=== PATIENT | male | born 1940 | race Caucasian/White ===

== ENCOUNTER → 2017-08-23 | Outpatient (CLI) | payer OTHER ==
[~2017-08-23] VITALS: Ht 185.4 cm; Wt 67.9 kg
[~2017-08-23] MED LIST: ACCUNEB SO1.25 MG/1 INH; ADVIL100 M2 PO; AZITHROMYCIN 2250 MG PO; BEVESPI AEROS10.7 GM INH; LEVAQUIN 750 M750 MG PO; MEDROLDOSEPACK PO; METHOCARBAMOL500 M2 PO; MUCINEX600 MG PO; NAPROSYN500 MG PO; NEXIUM40 MG PO; PHENERGAN 25 MG25 M1 PO; PREDNISONE 10 M10 MG PO; PREDNISONE 20 M20 MG PO; SPIRIVA INH; SYMBICORT160 MCG/4. INH; TRAMADOL 50 MG50 MG PO
--- NOTE | ~2017-08-23 | HPC ---
[facility] [place] [address] PAIN MANAGEMENT CONSULTATION Name: KOLE CRENSHAW [facility] #: [facility] [id number] Admission: 08/23/17 Attend Phys: Rip Cleveland DO Discharge: Date of : 38 Report #: [id number] THIS REPORT FOR: //name// CC: Delmar Carvajal MD DATE OF SERVICE: 08/23/2017 REFERRING PHYSICIAN: Florencio Carvajal MD CHIEF COMPLAINT: Low back pain, bilateral lower extremity pain with paresthesias. HISTORY OF PRESENT ILLNESS: As you know, the patient is a 77-year-old male who returns today in followup visit with ongoing pain involving low back and bilateral lower extremities. The patient was planned to undergo epidural injection, but he missed his appointments due to a COPD exacerbation and he was subsequently hospitalized. He now returns today in followup visit reporting pain score 7-8/10, states pain is exacerbated with sitting, walking any long distances, lying down appears to improve pain. He returns today requesting to undergo the epidural injection that we had planned for last visit. He indicates that his COPD has been exacerbated of late, he just recently completed a Z-CAMERON and so he is now done with his antibiotics. He is to return to have epidural injection. ALLERGIES: CODEINE. CURRENT MEDICATIONS: Omeprazole, Symbicort, glycopyrrolate, guaifenesin, and albuterol. SOCIAL HISTORY: The patient indicates he is a nonsmoker. Denies IV or illicit drug use. Denies any chronic alcohol use. He was employed in sales, he is retired, retired years ago, unaccompanied today. IMAGING: No new imaging available. PHYSICAL EXAMINATION: VITAL SIGNS: Blood pressure 121/70, pulse 82, respiratory rate 16 and unlabored, the patient is 95% on room air, height 6 feet 1 inch tall, weight 149.8 pounds, and BMI calculated 19.8. GENERAL: Thin, somewhat ill-appearing, frail 77-year-old male, he appears older than his stated age, placing current pain score at 7-8/10. HEENT: Normocephalic, atraumatic. Pupils are equal, round, and reactive to light. EXTREMITIES: Show no clubbing, no cyanosis, and no edema. [address] [address] PAIN MANAGEMENT CONSULTATION Name: KOLE CRENSHAW Room #: REG [facility]#: [id number] Admission: 08/23/17 Attend Phys: Rip Cleveland DO Discharge: Date of : 38 Report #: [id number] MUSCULOSKELETAL: Seated straight leg raising negative. Supine straight leg raising negative. Elie's test negative. Modified Gaenslen's positive for axial low back pain. Gait is antalgic. Stance is forward flex to lumbar spine. ASSESSMENT: 1. Atypical lumbar radiculopathy. 2. Lumbosacral spondylosis with radicular symptoms. 3. Axial back pain. 4. Myofascial symptoms. 5. Chronic intractable pain. PLAN: 1. The patient has returned today in followup visit requesting to undergo the epidural injection we have planned for last visit. The patient unfortunately missed his appointment due to COPD exacerbation. He is now indicating he is doing better overall, he has completed the antibiotic therapy and inhaled steroid, symptoms have improved. He has been advised to return, trial an epidural injection to address axial back pain and lower extremity symptoms. The patient has been advised the risks and benefits of an epidural injection, these risks include, but are not necessarily limited to bleeding, bruising, infection, worsening of pain, no relief of pain, also risk of temporary or permanent muscle weakness, temporary or permanent nerve damage, possible paralysis and . The patient states understood and wished to proceed. 2. No medication changes were made at today's visit. The patient will continue current medical therapy as previously prescribed. 3. We will see the patient back in followup visit in approximately 3 weeks, at that time we will review the efficacy of the epidural injection provided today and determine if next in a series would be warranted. PROCEDURE NOTE DESCRIPTION OF PROCEDURE: L5-S1 interlaminar epidural steroid injection under fluoroscopic guidance. This is the first procedure of the first series that the patient is undergoing. After obtaining written consent, the patient was taken back to the fluoroscopy suite, placed in a prone position with pillow under the abdomen to decrease lumbar lordosis. The skin overlying the lumbosacral area was then prepped and draped in aseptic fashion. The L5-S1 vertebral interspace was then identified by AP fluoroscopy. The skin and subcutaneous tissue overlying the target site of injection was anesthetized with 3 mL 1% lidocaine. Z00-ewifg 3-1/2-inch Tuohy needle was then advanced under fluoroscopic guidance towards the epidural space using a paramedian approach. The epidural space was identified using loss of resistance to air technique. After negative aspiration [facility] [address] [place] [address] PAIN MANAGEMENT CONSULTATION Name: KOLE CRENSHAW Room #: REG [facility] Holly#: [id number] Admission: 08/23/17 Attend Phys: Rip Cleveland DO Discharge: Date of : 38 Report #: [id number] for heme or cerebrospinal fluid, a total of 0.5 mL of Omnipaque was injected. A lumbar epidurogram was confirmed using both AP and lateral fluoroscopy. After negative aspiration for heme or cerebrospinal fluid, 4 mL of a solution containing 2 mL 40 mg per mL, 80 mg total triamcinolone, 2 mL of lidocaine 1% was injected in increments. Contrast spread was noted posterior epidural space. The needle was then retracted approximately half way and needle tract flushed with 1 mL of 1% lidocaine. Needle was then removed. There were no apparent sensory or motor deficits in the lower extremity following the procedure. A sterile bandage was placed over the injection site. The heart rate, pulse, oximetry and blood pressure were continuously monitored after the procedure. There were no apparent complications. The patient tolerated the procedure well and was carefully escorted to the recovery room in stable condition. There were no apparent complications. After meeting discharge criteria, the patient was then discharged home. By: 1158 [id number] Rip Cleveland DO /nt
[2017-08-23 09:41] VITALS: BP 121/70
== END | disposition home or self-care (01) ==
LOC: PAIN 07-18 07:08
DX: M54.16 Radiculopathy, lumbar region (principal); M47.27 Other spondylosis with radiculopathy, lumbosacral region; G89.29 Other chronic pain; M79.1 Myalgia; Z79.899 Other long term (current) drug therapy; Z88.8 Allergy status to other drugs, medicaments and biological substances; J44.9 Chronic obstructive pulmonary disease, unspecified; Z87.891 Personal history of nicotine dependence

== ENCOUNTER 2019-06-18 11:51 | Inpatient (IN) | payer OTHER ==
[~2019-06-18] VITALS: Ht 185.4 cm; Wt 62.3 kg
[2019-06-18 11:52] VITALS: BP 85/49
[2019-06-18] MEDS ORDERED: COLACE100 MG PO (12:22)
[2019-06-18] MEDS ORDERED: XANAX 0.25 MG0.25 MG PO (12:22)
[2019-06-18] MEDS ORDERED: LEXAPRO 10 MG T10 M1 PO (12:22)
[2019-06-18] MEDS ORDERED: FLONASE 0.05%50 MCG NASAL (12:23)
[2019-06-18] MEDS ORDERED: MIRALAX17 GM PO (12:23)
[2019-06-18 13:00] LABS: ANION GAP 8 mmol/L (7-16); BUN 14 mg/dL (7-18); CALCIUM 9.4 mg/dL (8.5-10.1); CHLORIDE 103 mmol/L (98-107); CO2 28 mmol/L (21-32); CREATININE 0.9 mg/dL (0.7-1.3); GLUCOSE 175 mg/dL (74-106); POTASSIUM 3.4 mmol/L (3.5-5.1); SODIUM 139 mmol/L (136-145)
[2019-06-18 13:04] LABS: ABSOLUTE NEUTROPHILS 5.3 thou/uL (1.4-8.2); BASOPHILS 0.6 % (0.0-2.0); EOSINOPHILS 5.5 % (0.0-3.0); HEMATOCRIT 38.6 % (42.0-52.0); HEMOGLOBIN 12.4 gm/dL (14.0-18.0); LYMPHOCYTES 8.8 % (24.0-44.0); MCH 26.8 pg (26.0-34.0); MCHC 32.1 g/dL (28.0-37.0); MCV 83.4 fL (80.0-100.0); MONOCYTES 11.6 % (1.0-8.0); PLATELET COUNT 280 thou/uL (150-400); POLYS 73.5 % (36.0-66.0); RBC 4.63 mil/uL (4.50-6.00); RDW 15.7 % (10.5-14.5); WBC 7.2 thou/uL (4.0-11.0)
[2019-06-18 13:11] LABS: ALBUMIN 3.4 g/dL (3.4-5.0); DIRECT BILIRUBIN 0.1 mg/dL (<0.1-0.3); SGOT 19 U/L (15-37); SGPT 21 U/L (30-65); TOTAL BILIRUBIN 0.5 mg/dL (<0.1-1.0); TOTAL PROTEIN 7.2 g/dL (6.4-8.2); TROPONIN-I <0.06 ng/mL (<0.06)
--- NOTE | 2019-06-18 14:12 | EKG ---
[place] [address] [facility] [place] [address] ELECTROCARDIOGRAM REPORT Name: KOLE CRENSHAW Room #: REG [place]ac#: [id number] Admission: 06/18/19 Attend Phys: Discharge: Date of : 38 Report #: [id number] THIS REPORT FOR: //name// [facility] ED Test Date: 2019-06-18 Test Time: 12:51:09 Pat Name: KOLE CRENSHAW Department: Room: Gender: M [employer] Operator: DENISE : 1940 Requested By: Esequiel Guadalupe Order Number: [id number] MD: Evin Michelle Measurements Intervals [place] Rate: 60 P: 64 KS: 160 QRS: 80 QRSD: 105 T: 58 QT: 444 QTc: 444 Interpretive Statements Sinus rhythm Baseline wander in lead(s) V1 Compared to ECG 08/21/2016 15:54:40 Atrial premature complex(es) no longer present Electronically Signed On 06-18-2019 14:11:54 CDT by Evin Michelle [email or web address] <ELECTRONICALLY SIGNED> By: Evin Michelle MD 06/18/19 1411 1251 125 Evin Michelle MD /[place]
[2019-06-18 15:19] LABS: URINE BILIRUBIN NEGATIVE (Negative); URINE BLOOD NEGATIVE (Negative); URINE CLARITY CLEAR; URINE COLOR YELLOW; URINE GLUCOSE-RANDOM* NEGATIVE (Negative); URINE KETONES TRACE (Negative); URINE LEUKOCYTES-REFLEX NEGATIVE (Negative); URINE NITRITE-REFLEX NEGATIVE (Negative); URINE PROTEIN (DIPSTICK) NEGATIVE (Negative); URINE SPECIFIC GRAVITY >= 1.030 (1.005-1.035); URINE UROBILINOGEN 0.2 E.U./dl (0.2-1.0)
[2019-06-18 16:38] VITALS: BP 94/58
[2019-06-18 17:00] VITALS: BP 110/62
[2019-06-18] MEDS ORDERED: B COMPLEX WITH1 EACH PO (18:30)
[2019-06-18 20:26] VITALS: BP 99/57
[2019-06-19 00:55] VITALS: BP 111/62
[2019-06-19 04:37] VITALS: BP 108/69
[2019-06-19 05:24] LABS: HEMATOCRIT 33.6 % (42.0-52.0); HEMOGLOBIN 10.8 gm/dL (14.0-18.0); MCH 26.8 pg (26.0-34.0); MCHC 32.3 g/dL (28.0-37.0); MCV 83.1 fL (80.0-100.0); RBC 4.04 mil/uL (4.50-6.00); RDW 15.6 % (10.5-14.5); WBC 6.4 thou/uL (4.0-11.0)
[2019-06-19 05:25] LABS: CALCIUM 8.5 mg/dL (8.5-10.1); CREATININE 0.6 mg/dL (0.7-1.3); POTASSIUM 3.7 mmol/L (3.5-5.1)
[2019-06-19 07:35] VITALS: BP 116/60
[2019-06-19 16:46] VITALS: BP 106/61
[2019-06-19 19:40] LABS: % SATURATION 20 % (20-39); IRON 47 ug/dL (65-175); TIBC 239 ug/dL (250-450)
[2019-06-19 19:43] VITALS: BP 100/52
[2019-06-20 03:08] VITALS: BP 102/54
[2019-06-20 04:41] VITALS: BP 104/63
[2019-06-20 06:19] LABS: BASOPHILS 0.1 % (0.0-2.0); EOSINOPHILS 0.1 % (0.0-3.0); HEMATOCRIT 34.5 % (42.0-52.0); HEMOGLOBIN 11.4 gm/dL (14.0-18.0); LYMPHOCYTES 2.9 % (24.0-44.0); MCH 27.2 pg (26.0-34.0); MCHC 32.9 g/dL (28.0-37.0); MCV 82.5 fL (80.0-100.0); MONOCYTES 1.8 % (1.0-8.0); PLATELET COUNT 266 thou/uL (150-400); POLYS 95.1 % (36.0-66.0); RBC 4.18 mil/uL (4.50-6.00); RDW 15.7 % (10.5-14.5); WBC 6.3 thou/uL (4.0-11.0)
[2019-06-20 06:32] LABS: ALBUMIN 2.7 g/dL (3.4-5.0); CREATININE 0.8 mg/dL (0.7-1.3); MAGNESIUM 1.8 mg/dL (1.8-2.4); PHOSPHORUS 3.8 mg/dL (2.5-4.9); POTASSIUM 3.9 mmol/L (3.5-5.1); TOTAL BILIRUBIN 0.5 mg/dL (<0.1-1.0); TOTAL PROTEIN 6.4 g/dL (6.4-8.2)
[2019-06-20 07:26] LABS: CALCIUM 8.8 mg/dL (8.5-10.1)
[2019-06-20 07:45] VITALS: BP 110/56
[2019-06-20 16:50] VITALS: BP 119/72
[2019-06-20 21:26] VITALS: BP 100/60
[2019-06-21 07:25] VITALS: BP 93/58
== END 2019-06-21 17:28 | DRG 391 ==
LOC: ER 11:51 → 2N 15:57 → 4S 15:57 → EROBS 15:57 → 2N 17:02 → 4S 06-20 02:31
PROVIDERS: Emergency Medicine; Internal Medicine Gastroenterology; Nurse Practitioner Acute Care; ADMIT Hospitalist
DX: A08.8 Other specified intestinal infections (principal); E43 Unspecified severe protein-calorie malnutrition; Z68.1 Body mass index [BMI] 19.9 or less, adult; K52.9 Noninfective gastroenteritis and colitis, unspecified; J44.9 Chronic obstructive pulmonary disease, unspecified; D64.9 Anemia, unspecified; I95.9 Hypotension, unspecified; E86.0 Dehydration; E86.9 Volume depletion, unspecified; Z87.81 Personal history of (healed) traumatic fracture; Z90.49 Acquired absence of other specified parts of digestive tract; Z88.6 Allergy status to analgesic agent; Z87.891 Personal history of nicotine dependence; Z80.0 Family history of malignant neoplasm of digestive organs; Z79.899 Other long term (current) drug therapy
CPT/HCPCS: 10081; 10102; 10194

== ENCOUNTER 2019-08-16 15:59 | Emergency (ER) | payer OTHER ==
[~2019-08-16] VITALS: Ht 185.4 cm; Wt 68.0 kg
[~2019-08-16 15:59] MED LIST changes: +B COMPLEX WITH1 EACH PO; +COLACE100 MG PO; +FLONASE 0.05%50 MCG NASAL; +LEXAPRO 10 MG T10 M1 PO; +MIRALAX17 GM PO; +XANAX 0.25 MG0.25 MG PO
[2019-08-16 16:25] LABS: HEMATOCRIT 38.6 % (42.0-52.0); HEMOGLOBIN 12.3 gm/dL (14.0-18.0); MCH 27.2 pg (26.0-34.0); MCHC 31.9 g/dL (28.0-37.0); MCV 85.4 fL (80.0-100.0); PLATELET COUNT 305 thou/uL (150-400); RBC 4.52 mil/uL (4.50-6.00); RDW 16.2 % (10.5-14.5); WBC 7.5 thou/uL (4.0-11.0)
[2019-08-16 16:33] LABS: ANION GAP 8 mmol/L (7-16); BUN 16 mg/dL (7-18); CALCIUM 9.7 mg/dL (8.5-10.1); CHLORIDE 106 mmol/L (98-107); CO2 29 mmol/L (21-32); CREATININE 0.9 mg/dL (0.7-1.3); GLUCOSE 131 mg/dL (74-106); SODIUM 143 mmol/L (136-145)
[2019-08-16 16:43] LABS: ALBUMIN 3.6 g/dL (3.4-5.0); MAGNESIUM 1.9 mg/dL (1.8-2.4); SGOT 29 U/L (15-37); SGPT 36 U/L (30-65); TOTAL BILIRUBIN 0.4 mg/dL (<0.1-1.0); TOTAL PROTEIN 7.3 g/dL (6.4-8.2); TROPONIN-I <0.06 ng/mL (<0.06)
[2019-08-16 16:50] LABS: APTT 27.1 Seconds (24.5-32.8); INR 1.1; PROTIME 10.8 Seconds (9.3-11.4)
[2019-08-16 16:51] LABS: ABSOLUTE NEUTROPHILS 4.7 thou/uL (1.4-8.2)
[2019-08-16 16:52] LABS: ANISOCYTOSIS 1+
[2019-08-16] MEDS ORDERED: DOXYCYCLINE 10100 MG PO (17:16)
[2019-08-16] MEDS ORDERED: PREDNISONE 20 M20 MG PO (17:16)
[2019-08-16 18:57] VITALS: BP 113/72
--- NOTE | 2019-08-17 12:23 | EKG ---
[place] [address] [facility] [place] [address] ELECTROCARDIOGRAM REPORT Name: KOLE CRENSHAW Room #: DEP TALIB [place]#: [id number] Admission: 08/16/19 Attend Phys: Discharge: 08/16/19 Date of : 38 Report #: [id number] THIS REPORT FOR: //name// [facility] ED Test Date: 2019-08-16 Test Time: 16:04:53 Pat Name: KOLE CRENSHAW Department: Room: Gender: Bull Rider: SAIDA : 1940 Requested By: Shadi Rachel Order Number: [id number] MD: Luis Palacio Measurements Intervals [place] Rate: 72 P: 61 [place]: 43 QRS: 83 QRSD: 108 T: 43 QT: 394 QTc: 432 Interpretive Statements Sinus rhythm Short AZ interval Borderline right axis deviation Compared to ECG 06/18/2019 12:51:09 Short [place] interval now present Electronically Signed On 08-17-2019 12:23:24 COST ACCOUNTING MANAGER by Luis Palacio [email or web address] <ELECTRONICALLY SIGNED> By: Luis Palacio MD 08/17/19 1223 1604 1604 Luis Palacio MD /[place]
== END 2019-08-16 19:00 | disposition home or self-care (01) ==
LOC: ER 15:59
PROVIDERS: Emergency Medicine
DX: J44.1 Chronic obstructive pulmonary disease with (acute) exacerbation (principal); R42 Dizziness and giddiness; Z87.891 Personal history of nicotine dependence; Z88.5 Allergy status to narcotic agent; Z79.899 Other long term (current) drug therapy; Z90.49 Acquired absence of other specified parts of digestive tract